=== PATIENT | female | born 1950 | race Caucasian/White ===

== ENCOUNTER 2017-10-21 07:49 | Emergency (ER) | payer MEDICARE, OTHER ==
[2017-10-21] MEDS ORDERED: HYDROcodone/ACETAMIN 5-325 MG* 1 TAB PO ONE (08:07)
[2017-10-21 08:10] VITALS: BP 149/76
--- NOTE | 2017-10-21 08:22 | UC ---
Hand/Wrist HPI - HPI Summary HPI Summary: This nice lady comes into the urgent care today complaining of left wrist pain after a fall where she she reached her hand out to catch herself, this morning. - History Of Current Complaint Chief Complaint: UCUpperExtremity Stated Complaint: LEFT WRIST INJURY S/P FALL Time Seen by Provider: 10/21/17 08:07 Hx Obtained From: Patient ?: No Mechanism Of Injury: FOOSH injury Onset/Duration: Sudden Onset, Still Present Severity Initially: Severe Severity Currently: Severe Pain Intensity: 10 Pain Scale Used: 0-10 Numeric Character Of Pain: Aching, Throbbing, Burning Aggravating Factor(s): Movement Alleviating Factor(s): Rest, Ice Associated Signs And Symptoms: Positive: Swelling, Bruising Related History: Dominant Hand Right - Allergies/Home Medications Allergies/Adverse Reactions: Allergies Allergy/AdvReac Type Severity Reaction Status Date / Time No Known Allergies Allergy Verified 10/21/17 08:06 Home Medications: Home Medications Lisinopril TAB* [Prinivil TAB 10 MG*] 40 mg QPM 10/21/17 [History Confirmed ] PMH/Surg Hx/FS Hx/Imm Hx Previously Healthy: No Cardiovascular History: Hypertension - Surgical History Surgical History: None - Family History Known Family History: Positive: None - Social History Occupation: Employed Full-time - Works in a [employer] Lives: With Family - Lives with her son Alcohol Use: None Substance Use Type: None Smoking Status (MU): Former Smoker Type: Cigarettes Have You Smoked in the Last Year: No When Did the Patient Quit Smoking/Using Tobacco: 2006 - Immunization History Most Recent Tetanus Shot: 2012 Review of Systems Constitutional: Negative Skin: Negative Eyes: Negative ENT: Negative Respiratory: Negative Cardiovascular: Negative Gastrointestinal: Negative Genitourinary: Negative Motor: Negative Neurovascular: Negative Musculoskeletal: Arthralgia - Left distal forearm pain and deformity Neurological: Negative Psychological: Negative Is Patient Immunocompromised?: No All Other Systems Reviewed And Are Negative: Yes Physical Exam Triage Information Reviewed: Yes Appearance: Well-Appearing, No Pain Distress, Well-Nourished Vital Signs: Initial Vital Signs Temp 98.5 F 10/21/17 08:07 Pulse 73 10/21/17 08:07 Resp 18 10/21/17 08:07 BP 149/76 10/21/17 08:07 Pulse Ox 99 10/21/17 08:07 Vital Signs Reviewed: Yes Eye Exam: Normal Eyes: Positive: Conjunctiva Clear ENT Exam: Normal ENT: Positive: Normal ENT inspection, Hearing grossly normal. Negative: Nasal congestion, Trismus, Muffled voice, Hoarse voice Neck exam: Normal Neck: Positive: Supple, Nontender Respiratory Exam: Normal Respiratory: Positive: Chest non-tender, No respiratory distress, No accessory muscle use Cardiovascular Exam: Normal Cardiovascular: Positive: RRR, Pulses Normal, Brisk Capillary Refill Musculoskeletal Exam: Other Musculoskeletal: Positive: Strength Limited @ - Left wrist, ROM Limited @ - Left wrist left wrist, Edema @ - Left wrist Neurological Exam: Normal Neurological: Positive: Alert, Muscle Tone Normal Psychological Exam: Normal Skin Exam: Normal Diagnostics - Radiology No standard instances Xray Interpretation: Positive (See Comments) - TECHNIQUE: 3 views left wrist. REPORT: There is a mildly comminuted and impacted fracture at the distal left radius. On the lateral view there is a small degree of dorsal angulation. There is a nondisplaced fracture of the ulnar styloid. Chronic appearing degenerative changes include sclerotic change at the articulating surface of the proximal trapezium and triquetral bones and at the articulating surfaces of the left thumb metacarpal and trapezium. Remaining visualized bones are intact and appropriately aligned. IMPRESSION: Fracture of the distal left radius and ulna as described above. Radiology Interpretation Completed By: ED Physician, Radiologist Re-Evaluation - Re-Evaluation First Eval Change: Improved - Sugar tong splint applied to left wrist and forearm. Patient placed in a sling. Neuro motor and circulation intact distally before and after splint placement. Hand/Wrist Course/Dx - Course Course Of Treatment: Rest ice and elevate keep wrist in splint and use sling. Pain management with ibuprofen and hydrocodone. off work until cleared by orthopedic doctor. call Dr. Mann in the morning for follow-up appointment. - Differential Dx/Diagnosis Provider Diagnoses: Hypertension in poor control, slightly displaced distal radial fracture left wrist. Nondisplaced ulnar styloid fracture left wrist Discharge - Sign-Out/Discharge Documenting (check all that apply): Discharge - Discharge Plan Condition: Stable Disposition: HOME Prescriptions: Hydrocodone/Acetaminophen [Hydrocodone/Acetaminophen 5-325 mg] 1 tab PO Q4HR PRN #24 tab MDD 6 PRN Reason: Pain Ibuprofen TAB* [Motrin TAB* 600 MG] 600 mg PO Q6H PRN #40 tab PRN Reason: pain Patient Education Materials: Arm Fracture in Adults (ED), How to Use a Sling ( ED), Hypertension (ED) Forms: *Work Release Referrals: Braxton Chandler MD [Primary Care Provider] - 2 Weeks Gerald Mann MD [Medical Doctor] - 1 Day - Billing Disposition and Condition Condition: STABLE Disposition: HOME
--- NOTE | 2017-10-21 08:40 | RAD ---
INDICATION: Left wrist pain after a fall. COMPARISON: None. TECHNIQUE: 3 views left wrist. REPORT: There is a mildly comminuted and impacted fracture at the distal left radius. On the lateral view there is a small degree of dorsal angulation. There is a nondisplaced fracture of the ulnar styloid. Chronic appearing degenerative changes include sclerotic change at the articulating surface of the proximal trapezium and triquetral bones and at the articulating surfaces of the left thumb metacarpal and trapezium. Remaining visualized bones are intact and appropriately aligned. IMPRESSION: Fracture of the distal left radius and ulna as described above.
== END 2017-10-21 09:25 | disposition home or self-care (01) ==
LOC: UCCORT 07:49
DX: S52.502A Unspecified fracture of the lower end of left radius, initial encounter for closed fracture (principal); S52.615A Nondisplaced fracture of left ulna styloid process, initial encounter for closed fracture; W19.XXXA Unspecified fall, initial encounter; Y93.9 Activity, unspecified; Y92.9 Unspecified place or not applicable; I10 Essential (primary) hypertension; Z87.891 Personal history of nicotine dependence
CPT/HCPCS: 99213; G0463